=== PATIENT | female | born 1980 | race Caucasian/White ===

== ENCOUNTER 2025-04-02 10:04 | Outpatient (RCR) | payer OTHER, MEDICAID, SELFPAY ==
[2025-03-29 14:00] VITALS: BP 108/52
[2025-03-29] MEDS: VENOFER 110 MG IV (14:09)
[2025-03-29 15:40] VITALS: BP 110/58
[2025-04-02 10:10] VITALS: BP 98/51
[2025-04-02] MEDS: VENOFER 110 MG IV (10:30)
[2025-04-02 11:45] VITALS: BP 105/59
== END 2025-04-02 14:43 | disposition home or self-care (01) ==
LOC: OID 10:04
PROVIDERS: ATTENDING PHYSICIAN Physician Assistant
DX: D50.0 Iron deficiency anemia secondary to blood loss (chronic) (principal); R53.82 Chronic fatigue, unspecified
CPT/HCPCS: 96365; J1756

== ENCOUNTER 2025-04-12 14:28 | Outpatient (RCR) | payer OTHER, MEDICAID, SELFPAY ==
[2025-04-07 14:41] VITALS: BP 110/44
[2025-04-07] MEDS: VENOFER 110 MG IV (14:53)
[2025-04-07 15:53] VITALS: BP 141/57
[2025-04-09] MEDS: VENOFER 110 MG IV (14:10)
[2025-04-09 14:13] VITALS: BP 98/52
[2025-04-12] MEDS: VENOFER 110 MG IV (14:56)
[2025-04-12 14:58] VITALS: BP 108/54
[2025-04-12 16:00] VITALS: BP 101/55
== END 2025-04-13 10:04 | disposition home or self-care (01) ==
LOC: OID 14:28
PROVIDERS: ATTENDING PHYSICIAN Physician Assistant
DX: D50.0 Iron deficiency anemia secondary to blood loss (chronic) (principal); R53.83 Other fatigue; T45.4X5A Adverse effect of iron and its compounds, initial encounter; Y93.89 Activity, other specified
CPT/HCPCS: 96365; J1756